=== PATIENT | male | born 1950 | race Caucasian/White ===

== ENCOUNTER 2018-07-08 11:24 | Observation (INO) ==
[2018-07-08 12:19] LABS: Basophils % 0.5 %; Eosinophils # 0.1 K/mcL (0.0-0.6); Eosinophils % 1.1 %; Hematocrit 44.1 % (37.5-50.1); Hemoglobin 14.9 g/dL (12.9-16.9); Immature Granulocytes % 0.3 % (0-4); Lymphocytes # 1.3 K/mcL (0.6-4.6); Lymphocytes % 20.1 %; Mean Corpuscular HGB Conc 33.8 g/dL (31.6-35.5); Mean Corpuscular Hemoglobin 31.4 pg (28.0-33.3); Mean Corpuscular Volume 92.8 fL (83.0-100.0); Mean Platelet Volume 10.6 fL (9.4-12.4); Monocytes # 0.5 K/mcL (0.0-1.3); Monocytes % 7.1 %; Neutrophils # 4.7 K/mcL (1.6-8.9); Platelet Count 187 K/mcL (140-400); Red Blood Count 4.75 M/mcL (4.19-5.50); Red Cell Distribution Width 12.8 % (11.5-14.5); Segmented Neutrophils % 70.9 %
[2018-07-08 12:38] LABS: BUN/Creatinine Ratio 20 (6-26); Blood Urea Nitrogen 22 mg/dL (8-23); Calcium 9.9 mg/dL (8.6-10.3); Carbon Dioxide 26 mEq/L (23-29); Chloride 106 mEq/L (98-107); Glucose 106 mg/dL (70-105); Osmolality,Calculated 290 (280-300); Potassium 4.8 mEq/L (3.5-5.1); Sodium 138 mEq/L (136-145); eGFR For Non-African Americans > 60 (> 60)
[2018-07-08 12:39] LABS: Troponin I < 0.03 ng/mL (< 0.04)
[2018-07-08] MEDS ORDERED: Aspirin 325 MG TABLET PO STA (12:45)
[2018-07-08] MEDS ORDERED: Acetaminophen 325 MG TABLET PO PRN (14:03)
[2018-07-08] MEDS ORDERED: Naloxone 0.4 MG/ML INJ IVP PRN (14:03)
--- NOTE | 2018-07-08 14:05 | Emergency Department Note ---
Disposition Clinical Impression: Chest pain Qualifiers: Chest pain type: unspecified Qualified Code(s): R07.9 - Chest pain, unspecified Disposition: Admitted As Inpatient Condition: Fair Referrals: Gómez Minor DO [Primary Care Provider] - General Adult HPI - General Chief complaint: ED Shortness of Breath/Dyspnea Stated complaint: "sob,weak" Time Seen by Provider: 07/08/18 11:28 Source: patient Limitations: no limitations Nursing Notes Reviewed: Yes Vital Signs Reviewed: Yes - History of Present Illness HPI Narrative: Patient with a history of smoking, hypertension, hypercholesterol it has not been on medications for over a year and a family history of heart disease for evaluation of chest pain and generalized weakness. Patient woke up today with generalized weakness. Patient was doing yard work when he noticed chest pain last proximally 30 minutes. Patient chest pain was during exertion. Chest pain resolved with rest. He had several episodes where he felt like he could not get a full breath in. His brother had similar symptoms when he had an CA 2 years ago. Patient's father has also had heart disease. The patient has not had any previous cardiac evaluation. Patient's EKG does not show any signs of acute STEMI. Further cardiac workup including d-dimer will be performed. Pain Scale: 0 - Related Data Home Medications Medication Instructions Recorded Confirmed Meloxicam 15 mg PO DAILY 08/12/16 02/10/17 Multivitamin [One Daily Essential] 1 tab PO DAILY 08/12/16 02/10/17 Omeprazole [PriLOSEC] 20 mg PO DAILY 08/12/16 02/10/17 Acetaminophen [Tylenol] 325 mg PO Q6HR PRN 02/10/17 02/10/17 Tamsulosin HCl [Flomax] 0.4 mg PO DAILY 02/10/17 02/10/17 Allergies Allergy/AdvReac Type Severity Reaction Status Date / Time No Known Allergies Allergy Verified 07/08/18 11:32 Review of Systems: CONSTITUTIONAL: Fatigue No weight loss, fever, chills, weakness HEENT: Eyes: No visual changes. Ears, Nose, Throat: No hearing loss, difficulty talking or unable to swallow. SKIN: No rash or itching. CARDIOVASCULAR: Chest pressure RESPIRATORY: Shortness of breath with exertion GASTROINTESTINAL: No anorexia, nausea, vomiting or diarrhea. No abdominal pain or blood. GENITOURINARY: No burning on urination or hematuria. NEUROLOGICAL: No headache, dizziness, syncope, paralysis, ataxia, numbness or tingling in the extremities. No change in bowel or bladder control. MUSCULOSKELETAL: No muscle pain, back pain, joint pain or stiffness. Past Medical History - Past Medical History Medical history: Reports: GERD, hyperlipidemia Surgical history: Reports: appendectomy, herniorrhaphy Psychiatric history: Reports: no psych history - Social History Smoking Status: Current every day smoker Smokeless Tobacco Status: No Alcohol use: Reports: rarely Drug use: Reports: marijuana Physical Exam General: Well appearing, nontoxic, no acute distress Head: Normocephalic Atraumatic Eyes: PERRL, EOMI ENT: Airway patent, no stridor Neck: supple, no meningismus Chest: Lungs clear to auscultation bilateral Cardiac: Regular rate and rhythm, no murmurs, rubs or gallops Abdomen: soft, nontender, nondistended; no guarding, rebound, or tenderness to percussion Musculoskeletal: Calves symmetric, nontender, no palpable cord Skin: No rash, normal skin tone Neuro: Alert and Oriented to person, place, and time; No focal deficit, CN 2-12 symmetric and intact - General Limitations: no limitations General appearance: alert, in no apparent distress Course - Reevaluation(s) Reevaluation #1: Patient remains chest pain-free. Workup is negative. Including d-dimer. Patient will be admitted for further cardiac evaluation - Consultations Consultation #1: Discussed the hospitalist. Patient except for admission. Vital Signs Temperature 98.2 F 07/08/18 11:31 Pulse Rate 100 07/08/18 11:31 Respiratory Rate 16 07/08/18 11:31 Blood Pressure 121/79 07/08/18 11:31 O2 Sat by Pulse Oximetry 98 07/08/18 11:31 Temperature 98.2 F 07/08/18 12:13 Pulse Rate 100 07/08/18 12:13 Respiratory Rate 16 07/08/18 12:13 Blood Pressure 121/79 07/08/18 12:13 O2 Sat by Pulse Oximetry 100 07/08/18 12:13 Oxygen Delivery Oxygen Delivery Room Air Medical Decision Making - Medical Records Medical records reviewed: Yes I reviewed the patient's medical records. - Lab Data Lab results reviewed: Yes I reviewed the patient's lab results. Result diagrams: 07/08/18 12:04 07/08/18 12:04 Lab Results 07/08/18 07/08/18 07/08/18 Range/Units 12:04 12:04 12:04 WBC 6.6 (4.3-11.1) K/mcL RBC 4.75 (4.19-5.50) M/mcL Hgb 14.9 (12.9-16.9) g/dL Hct 44.1 (37.5-50.1) % MCV 92.8 (83.0-100.0) fL MCH 31.4 (28.0-33.3) pg MCHC 33.8 (31.6-35.5) g/dL RDW 12.8 (11.5-14.5) % Plt Count 187 (140-400) K/mcL MPV 10.6 (9.4-12.4) fL Immature Gran % 0.3 (0-4) % Seg Neutrophils % 70.9 % Lymphocytes % 20.1 % Monocytes % 7.1 % Eosinophils % 1.1 % Basophils % 0.5 % Neutrophils # 4.7 (1.6-8.9) K/mcL Lymphocytes # 1.3 (0.6-4.6) K/mcL Monocytes # 0.5 (0.0-1.3) K/mcL Eosinophils # 0.1 (0.0-0.6) K/mcL Basophils # 0.0 (0.0-0.2) K/mcL D-Dimer 485 (0-500) ng/mLFEU Sodium 138 (136-145) mEq/L Potassium 4.8 (3.5-5.1) mEq/L Chloride 106 (98-107) mEq/L Carbon Dioxide 26 (23-29) mEq/L BUN 22 (8-23) mg/dL Creatinine 1.12 (0.70-1.30) mg/dL Est GFR ( Amer) > 60 (> 60) Est GFR (Non-Af Amer) > 60 (> 60) BUN/Creatinine Ratio 20 (6-26) Glucose 106 H (70-105) mg/dL Calculated Osmolality 290 (280-300) Calcium 9.9 (8.6-10.3) mg/dL Troponin I < 0.03 (< 0.04) ng/mL B-Natriuretic Peptide (Less than 100) pg/mL 07/08/18 Range/Units 12:04 WBC (4.3-11.1) K/mcL RBC (4.19-5.50) M/mcL Hgb (12.9-16.9) g/dL Hct (37.5-50.1) % MCV (83.0-100.0) fL MCH (28.0-33.3) pg MCHC (31.6-35.5) g/dL RDW (11.5-14.5) % Plt Count (140-400) K/mcL MPV (9.4-12.4) fL Immature Gran % (0-4) % Seg Neutrophils % % Lymphocytes % % Monocytes % % Eosinophils % % Basophils % % Neutrophils # (1.6-8.9) K/mcL Lymphocytes # (0.6-4.6) K/mcL Monocytes # (0.0-1.3) K/mcL Eosinophils # (0.0-0.6) K/mcL Basophils # (0.0-0.2) K/mcL D-Dimer (0-500) ng/mLFEU Sodium (136-145) mEq/L Potassium (3.5-5.1) mEq/L Chloride (98-107) mEq/L Carbon Dioxide (23-29) mEq/L BUN (8-23) mg/dL Creatinine (0.70-1.30) mg/dL Est GFR ( Amer) (> 60) Est GFR (Non-Af Amer) (> 60) BUN/Creatinine Ratio (6-26) Glucose (70-105) mg/dL Calculated Osmolality (280-300) Calcium (8.6-10.3) mg/dL Troponin I (< 0.04) ng/mL B-Natriuretic Peptide 10 (Less than 100) pg/mL - Radiology Data Radiology results reviewed: Yes I reviewed the patient's radiology results. - EKG Data EKG #1 EKG attestation: Yes I reviewed and interpreted this EKG. EKG results narrative: EKG shows sinus rhythm with ventricular rate of 82. DE interval 155. QRS 95. QTC 415. Patient has no significant ST elevations or depressions. Inverted T- wave in aVL. Because he went change in comparison to previous of 07/30/2015.
[2018-07-08] MEDS ORDERED: Ondansetron 4 MG/2 ML VIAL IVP PRN (14:07)
[2018-07-08] MEDS ORDERED: Nitroglycerin 0.4 MG TAB.SUBL SL PRN (14:07)
[2018-07-08] MEDS ORDERED: *HR* Promethazine 25 MG/ML VIAL IVP PRN (14:07)
--- NOTE | 2018-07-08 14:21 | Internal Med History&Physical ---
<MarylouparmjitfadumoRamin denis - Last Filed: 07/08/18 14:44> Date of Encounter: 07/08/18 Time of Encounter: 13:30 Internal Medicine - H&P: HPI Chief complaint: CP Admitted From: Emergency Dept Plans for Post Hospital Care: Home History of present illness: Mr. Brown is a 67 year old male w/PMH of HLD, BPH, GERD, and bleeding ulcer in 1991 presents from the ED w/CC of CP that began today. 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 While working today he experienced SOB, weakness, and chest tightness that he states was a pressure that took his breath away across his entire chest. Denies nausea, vomiting, diaphoresis, and headache. Denies radiation to any other area. Denies cardiac hx, previous [place], stents, or recent w/u. Reports no CP while in ED on exam. No alleviating factors. Pt. reports some dizziness w/standing but denies recent illness, fever , chills, nausea, vomiting, headache, changes in vision, unusual bleeding, cough , chest congestion, abdominal pain, diarrhea, constipation, numbness, tingling, pre-syncope, or syncope. Past Med Surg Social Fam HX - Past Medical History Source: patient, old records reviewed Medical history: GERD, hyperlipidemia Additional medical history: BPH Psychiatric history: no psych history - Past Surgical History Surgical History: appendectomy, herniorrhaphy Additional surgical history: billroth 2,stomach ulcer, - Social History Smoking Status: Current every day smoker Packs per day: 10/24 PPD Smokeless Tobacco Status: No Alcohol use: rarely Drug use: marijuana Current living situation: Home, With Family Activity Level: Independent ambulation, Very active Recent Out of Country Travel Within the Last 8 Weeks: No Exposure or Possible Exposure to Illness During Travel: No - Family History Father Race: Family Member Ethnicity: Non- Living Status: Cause of : in sleep Hx Family Cardiac Disorders: Yes ([place]) Mother Race: Family Member Ethnicity: Non- Living Status: Cause of : in sleep Hx Family Cardiac Disorders: Yes ([place], CAD) Brother Race: Family Member Ethnicity: Non- Living Status: Still Living Hx Family Cardiac Disorders: Yes ([place] x2 at age 67) Sister Race: Family Member Ethnicity: Non- Living Status: Still Living Hx Family Cardiac Disorders: Yes ([place]) Internal Medicine - H&P: Meds Meloxicam 15 mg PO DAILY 08/12/16 [History] Multivitamin [One Daily Essential] 1 tab PO DAILY 08/12/16 [History] Omeprazole [PriLOSEC] 20 mg PO DAILY 08/12/16 [History] Tamsulosin HCl [Flomax] 0.4 mg PO DAILY 02/10/17 [History] 3 Allergy/AdvReac Type Severity Reaction Status Date / Time No Known Allergies Allergy Verified 07/08/18 14:12 All Systems PM: A 10-system review of systems was performed and is negative for pertinent findings except as documented above in the HPI. - Constitutional Constitutional: as per HPI, weakness, no chills, no fever(s), no night sweats - EENT Eyes: no change in vision, no discharge, no pain, no photophobia Ears: no ear discharge, no ear pain, no tinnitus Nose, mouth and throat: no dysphagia, no nasal discharge, no neck pain, no sore throat - Breasts Breasts: as per HPI - Cardiovascular Cardiovascular ROS IM: as per HPI, dyspnea, dyspnea on exertion, lightheadedness , no chest pain, no diaphoresis, no palpitations, no syncope - Respiratory Respiratory: as per HPI, dyspnea, dyspnea on exertion, no cough, no wheezing, no excessive phlegm production - Gastrointestinal Gastrointestinal: no abdominal pain, no diarrhea, no hematemesis, no hematochezia, no melena, no nausea, no vomiting - Genitourinary Genitourinary ROS male: as per HPI, urinary hesitancy - Musculoskeletal Musculoskeletal ROS IM: no numbness, no tingling - Integumentary Integumentary IM: no rash, no unusual bruising - Neurological Neurological ROS: as per HPI, dizziness, weakness, no confusion, no convulsions , no focal weakness, no numbness, no tingling, no tremor(s) - Psychiatric Psychiatric: as per HPI - Endocrine Endocrine IM: as per HPI - Hematologic/Lymphatic Hematologic/Lymphatic: no easy bruising - Allergic/Immunologic Allergic/Immunologic: as per HPI - Constitutional Vitals: Temp Pulse Resp BP Pulse Ox 98.2 F 100 16 121/79 100 07/08/18 12:13 07/08/18 12:13 07/08/18 12:13 07/08/18 12:13 07/08/18 12:13 General appearance: Present: cooperative, A&O X 3, pleasant, no acute distress, answers questions appropriately Exam: Pt. examined at bedside in ED. Pt. resting comfortably in bed and denies CP during exam. 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 Reports dizziness w/positional changes and historically low BP. Denies SOB or weakness on exam. Plan of care discussed w/pt. regarding ACS r/o and he expressed understanding and agreement. VS: temp 98.2F, HR 100, RR 16, BP 121/79, SpO2 98 on RA. - Head Head exam: Present: atraumatic, normocephalic - Eye Eye exam: Present: PERRL, conjuntiva pink, sclera anicteric Pupils: Present: PERRL - ENT ENT exam: Present: normal exam - Neck Neck exam general surgery: Present: normal inspection, supple, trachea midline. Absent: lymphadenopathy - Respiratory Respiratory exam: Present: CTAB. Absent: accessory muscle use, rales, rhonchi, wheezes - Cardiovascular Cardiovascular exam: Present: RRR, +S1, +S2. Absent: diastolic murmur, gallop, rubs, systolic murmur - GI/Abdominal GI/Abdominal exam: Present: normal bowel sounds, soft, no peritoneal signs. Absent: distended, tenderness - Rectal Rectal exam: Present: deferred - Additional comments: exam deferred. - Extremities Exam Extremities exam: Present: warm, radial pulses palpable and symmetrical. Absent : calf tenderness, cyanotic, pedal edema - Back Exam Back exam: Present: normal inspection - Neurological Exam Neurological exam: Present: alert, CN II-XII intact, oriented X3, no focal deficits. Absent: pronater drift, facial droop, speech deficit - Psychiatric Psychiatric exam: Present: normal affect, normal mood - Skin Skin exam: Present: dry, intact Internal Med - H&P Results - Labs CBC & Chem 7: 07/08/18 12:04 07/08/18 12:04 Labs: Short CBC 07/08/18 Range/Units 12:04 WBC 6.6 (4.3-11.1) K/mcL Hgb 14.9 (12.9-16.9) g/dL Hct 44.1 (37.5-50.1) % Plt Count 187 (140-400) K/mcL Neutrophils # 4.7 (1.6-8.9) K/mcL BMP 07/08/18 12:04 Sodium 138 Potassium 4.8 Chloride 106 Carbon Dioxide 26 BUN 22 Creatinine 1.12 Glucose 106 H Calcium 9.9 Cardiac Enzymes 07/08/18 Range/Units 12:04 Troponin I < 0.03 (< 0.04) ng/mL - Impressions ITS Impressions Chest X-Ray 07/08/18 11:50 IMPRESSION: No acute process. D/ / Chencho Benitez MD / Chencho eBnitez MD Interpreting Provider: Chencho Benitez MD - Diagnostic Studies Chest x-ray Additional comments: Impressions Chest X-Ray 07/08/18 11:50 IMPRESSION: No acute process. D/ / Chencho Benitez MD / Chencho Benitez MD Interpreting Provider: Chencho Benitez MD - Assessment and plan (1) Chest pain Current Visit: Yes Status: Acute Assessment and plan: Acute CP today w/exertion. While working today he experienced SOB, weakness, and chest tightness that he states was a pressure that took his breath away across his entire chest. Denies nausea, vomiting, diaphoresis, and headache. Denies radiation to any other area. Denies cardiac hx, previous [place], stents, or recent w/u. Reports no CP while in ED on exam. No alleviating factors. Initial troponin <0.03. Will trend. ASA in ED. 80 mg Lipitor NOW. SL nitro PRN. Continuous cardiac telemetry. Echocardiogram. NPO Tuesday at 00:01 for a.m. exercise stress test on Tuesday morning if troponins remain WNL. Continue 81 mg Aspirin daily. Lipid panel ordered. Consider adding Cardiology consult if Echocardiogram, troponins, and/or stress test results abnormal. Pt. discussed w/ Dr. Cedeno who agrees w/plan of care. Pt. is high risk for further morbidity and cardiac event based on CP that began w/exertion, extensive familial hx of cardiac disease and MIs, hx of poorly controlled HLD, and current tobacco abuse. Observation. Qualifiers: Chest pain type: other chest pain Qualified Code(s): R07.89 - Other chest pain; R07.8 - Other chest pain (2) SOB (shortness of breath) Current Visit: Yes Status: Acute Assessment and plan: Acute SOB w/chest pressure. Pt. 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 Supplemental O2 w/titration and SpO2 monitoring PRN. (3) Dizziness Current Visit: Yes Status: Acute Assessment and plan: Acute dizziness w/positional changes. Orthostatic BPs and VS. Bilateral carotid Dopplers. Falls precautions. (4) Weakness Current Visit: Yes Status: Acute Assessment and plan: Acute weakness w/CP sx. Falls precautions. (5) HLD (hyperlipidemia) Current Visit: Yes Status: Chronic Assessment and plan: Hx of chronic HLD. Pt. states he was taking Lipitor daily @ 80 mg but his PCP stopped d/t causing nausea. Unsure if the Lipitor is what was causing the sx. Lipitor 80 mg NOW. Lipid panel in a.m. labs. Consider adding statin based on panel results. Qualifiers: Hyperlipidemia type: pure hypercholesterolemia Qualified Code(s): E78.00 - Pure hypercholesterolemia, unspecified; E78.0 - Pure hypercholesterolemia (6) GERD (gastroesophageal reflux disease) Current Visit: Yes Status: Chronic Assessment and plan: Hx of chronic GERD. Continue pts. Prilosec. IVP Zofran and Phenergan ordered for N/V PRN. Qualifiers: Esophagitis presence: esophagitis presence not specified Qualified Code(s) : K21.9 - Gastro-esophageal reflux disease without esophagitis (7) BPH (benign prostatic hyperplasia) Current Visit: Yes Status: Chronic Assessment and plan: Hx of BPH. Pt. reports difficulty w/urination and urinary retention. Continue pts. Flomax. Qualifiers: Lower urinary tract symptom presence: symptoms present Lower urinary tract symptom detail: urinary retention Qualified Code(s): N40.1 - Benign prostatic hyperplasia with lower urinary tract symptoms; R33.8 - Other retention of urine (8) DVT prophylaxis Current Visit: Yes Status: Acute Assessment and plan: Heparin 5,000 units SQ Q8HR for DVT prophylaxis. Monitor pt. for signs of bleeding d/t hx of bleeding ulcer. - Time Spent With Patient Total time spent is greater than 50% in coordination of care (as documented) at patient's floor/unit and/or counseling patient: Greater than 35 minutes <Gissel Cedeno - Last Filed: 07/08/18 20:28> Date of Encounter: 07/08/18 Internal Medicine - H&P: HPI History of present illness: Mr. Brown is a 67 year old male All Systems PM: A 10-system review of systems was performed and is negative for pertinent findings except as documented above in the HPI. - Constitutional Vitals: Temp Pulse Resp BP Pulse Ox 98.5 F 80 16 96/60 97 07/08/18 19:22 07/08/18 19:22 07/08/18 19:22 07/08/18 19:22 07/08/18 19:22 Internal Med - H&P Results - Labs CBC & Chem 7: 07/08/18 12:04 07/08/18 12:04 Labs: Cardiac Enzymes 07/08/18 Range/Units 18:06 Troponin I < 0.03 (< 0.04) ng/mL - Assessment and plan (1) Chest pain Current Visit: Yes Status: Acute Qualifiers: Chest pain type: other chest pain Qualified Code(s): R07.89 - Other chest pain; R07.8 - Other chest pain (2) SOB (shortness of breath) Current Visit: Yes Status: Acute (3) Dizziness Current Visit: Yes Status: Acute (4) Weakness Current Visit: Yes Status: Acute (5) HLD (hyperlipidemia) Current Visit: Yes Status: Chronic Qualifiers: Hyperlipidemia type: pure hypercholesterolemia Qualified Code(s): E78.00 - Pure hypercholesterolemia, unspecified; E78.0 - Pure hypercholesterolemia (6) GERD (gastroesophageal reflux disease) Current Visit: Yes Status: Chronic Qualifiers: Esophagitis presence: esophagitis presence not specified Qualified Code(s) : K21.9 - Gastro-esophageal reflux disease without esophagitis (7) BPH (benign prostatic hyperplasia) Current Visit: Yes Status: Chronic Qualifiers: Lower urinary tract symptom presence: symptoms present Lower urinary tract symptom detail: urinary retention Qualified Code(s): N40.1 - Benign prostatic hyperplasia with lower urinary tract symptoms; R33.8 - Other retention of urine (8) DVT prophylaxis Current Visit: Yes Status: Acute - Time Spent With Patient Total time spent is greater than 50% in coordination of care (as documented) at patient's floor/unit and/or counseling patient: - Attending Attestation Seen and assessed. Continue management for chest pain. Agree with plan per LOCKSTITCH BINDER
[2018-07-08] MEDS: *HR* Heparin 5,000 UNIT/ML VIAL SQ SCH (20:14)
[2018-07-09 00:45] LABS: Basophils % 0.7 %; Eosinophils # 0.2 K/mcL (0.0-0.6); Hematocrit 39.3 % (37.5-50.1); Hemoglobin 13.4 g/dL (12.9-16.9); Immature Granulocytes % 0.2 % (0-4); Lymphocytes # 2.5 K/mcL (0.6-4.6); Lymphocytes % 40.8 %; Mean Corpuscular HGB Conc 34.1 g/dL (31.6-35.5); Mean Corpuscular Hemoglobin 31.6 pg (28.0-33.3); Mean Corpuscular Volume 92.7 fL (83.0-100.0); Mean Platelet Volume 10.7 fL (9.4-12.4); Monocytes # 0.6 K/mcL (0.0-1.3); Monocytes % 9.8 %; Neutrophils # 2.7 K/mcL (1.6-8.9); Platelet Count 165 K/mcL (140-400); Red Blood Count 4.24 M/mcL (4.19-5.50); Red Cell Distribution Width 12.8 % (11.5-14.5); Segmented Neutrophils % 45.5 %
[2018-07-09 01:06] LABS: Alanine Aminotransferase 11 Units/L (7-52); Albumin 3.7 g/dL (3.5-5.7); Albumin/Globulin Ratio 1.8 (1.1-2.2); Alkaline Phosphatase 61 Units/L (34-104); Aspartate Amino Transferase 14 Units/L (13-39); BUN/Creatinine Ratio 22 (6-26); Bilirubin,Total 0.4 mg/dL (0.3-1.0); Blood Urea Nitrogen 22 mg/dL (8-23); Calcium 8.9 mg/dL (8.6-10.3); Carbon Dioxide 24 mEq/L (23-29); Chloride 107 mEq/L (98-107); Chol/HDL Ratio 4.3 (0-4.9); Cholesterol 170 mg/dL (< 200); Globulin 2.1 g/dL (2.4-3.5); Glucose 125 mg/dL (70-105); HDL Cholesterol 40 mg/dL (40-59); LDL Cholesterol,Calculated 109 mg/dL (0-99); Osmolality,Calculated 289 (280-300); Potassium 4.1 mEq/L (3.5-5.1); Sodium 137 mEq/L (136-145); Total Protein 5.8 g/dL (6.4-8.9); Triglycerides 103 mg/dL (< 150); eGFR For Non-African Americans > 60 (> 60)
[2018-07-09] MEDS: *HR* Heparin 5,000 UNIT/ML VIAL SQ SCH ×3 (05:12→21:52)
[2018-07-09] MEDS: Multivit/Ca/Min/Fe/FA 1 TAB TABLET PO SCH (08:23)
[2018-07-09] MEDS: Aspirin Enteric Coated 81 MG Tablet PO SCH (08:23)
[2018-07-09] MEDS ORDERED: Perflutren Lipid Microsphere 1.3 ML in 0.9 % Sodium Chloride 8.7 ML IVP ONE (10:56)
[2018-07-09] MEDS: Nicotine 14 MG PATCH.TD24 TD SCH (12:16)
--- NOTE | 2018-07-09 12:42 | Internal Med Progress Note ---
Hospitalist Progress Note - Encounter Date of Encounter: 07/09/18 Time of Encounter: 12:10 - Subjective Interval History: H&P reviewed. Patient was admitted for atypical chest pain with tobacco history of hyperlipidemia, tobacco abuse, and family history of premature CAD. Currently denies any chest pain nor did it recur overnight. No SOB, palpitation , orthopnea, PND, or leg swelling. - Exam Vitals: Temp Pulse Resp BP Pulse Ox 98.8 F 72 16 99/62 100 07/09/18 12:01 07/09/18 12:01 07/09/18 12:01 07/09/18 12:07/09/18 12:01 Exam: General: Alert and oriented, not in acute distress. Cardiovascular:Normal S1 & S2, No JVD. Pulse regular. No chest wall tenderness Lungs: clear to auscultation, no wheezes/rales Abdomen:Soft, non-tender, no rigidity. Extremities:No deformity or swelling Neurological:Normal cognition and motor skills. Non-focal - Assessment and Plan (1) Chest pain Current Visit: Yes Status: Acute Assessment and Plan: Atypical chest pain with risk factors including hyperlipidemia, tobacco abuse, and family history troponin -ve x 3 LDL 109, HDL 40 check A1c Echocardiogram for stress test tomorrow ASA, statin (2) HLD (hyperlipidemia) Current Visit: Yes Status: Chronic Assessment and Plan: Lipid profile as above Statin (3) GERD (gastroesophageal reflux disease) Current Visit: Yes Status: Chronic Assessment and Plan: Hx of chronic GERD. Continue pts. Prilosec. IVP Zofran and Phenergan ordered for N/V PRN. (4) BPH (benign prostatic hyperplasia) Current Visit: Yes Status: Chronic Assessment and Plan: Hx of BPH. Pt. reports difficulty w/urination and urinary retention. Continue pts. Flomax. (5) Tobacco abuse Current Visit: Yes Status: Acute Assessment and Plan: Counselled on smoking cessation NRT (6) DVT prophylaxis Current Visit: Yes Status: Acute Assessment and Plan: Heparin 5,000 units SQ Q8HR for DVT prophylaxis. - Time Spent with Patient Total time spent is greater than 50% in coordination of care (as documented) at patient's floor/unit and/or counseling patient: Plan of Care Discussed with: patient Internal Medicine: Result - Labs CBC & Chem 7: 07/09/18 00:31 07/09/18 00:31 Labs: Short CBC 07/09/18 Range/Units 00:31 WBC 6.0 (4.3-11.1) K/mcL Hgb 13.4 D (12.9-16.9) g/dL Hct 39.3 (37.5-50.1) % Plt Count 165 (140-400) K/mcL Neutrophils # 2.7 (1.6-8.9) K/mcL BMP 07/09/18 00:31 Sodium 137 Potassium 4.1 Chloride 107 Carbon Dioxide 24 BUN 22 Creatinine 1.02 Glucose 125 H Calcium 8.9 Cardiac Enzymes 07/08/18 07/09/18 Range/Units 18:06 00:31 Troponin I < 0.03 < 0.03 (< 0.04) ng/mL Liver Function 07/09/18 Range/Units 00:31 Total Bilirubin 0.4 (0.3-1.0) mg/dL AST 14 (13-39) Units/L ALT 11 (7-52) Units/L Alkaline Phosphatase 61 (34-104) Units/L Albumin 3.7 (3.5-5.7) g/dL - ABG Interpretation ABG results: PT/INR, D-dimer D-Dimer 485 ng/mLFEU (0-500) 07/08/18 12:04 Consult Discharge Plan - Plan Referrals: Gómez Minor DO [Primary Care Provider] - (1) Chest pain Qualifiers: Chest pain type: other chest pain Qualified Code(s): R07.89 - Other chest pain; R07.8 - Other chest pain (2) HLD (hyperlipidemia) Qualifiers: Hyperlipidemia type: pure hypercholesterolemia Qualified Code(s): E78.00 - Pure hypercholesterolemia, unspecified; E78.0 - Pure hypercholesterolemia (3) GERD (gastroesophageal reflux disease) Qualifiers: Esophagitis presence: esophagitis presence not specified Qualified Code(s): K21.9 - Gastro-esophageal reflux disease without esophagitis (4) BPH (benign prostatic hyperplasia) Qualifiers: Lower urinary tract symptom presence: symptoms present Lower urinary tract symptom detail: urinary retention Qualified Code(s): N40.1 - Benign prostatic hyperplasia with lower urinary tract symptoms; R33.8 - Other retention of urine
[2018-07-10] MEDS: *HR* Heparin 5,000 UNIT/ML VIAL SQ SCH ×2 (05:11→14:27)
[2018-07-10 07:04] LABS: Estimated Average Glucose 117 mg/dl; Hemoglobin A1C 5.7 %
[2018-07-10] MEDS: Nicotine 14 MG PATCH.TD24 TD SCH (09:23)
[2018-07-10] MEDS: Multivit/Ca/Min/Fe/FA 1 TAB TABLET PO SCH (09:24)
[2018-07-10] MEDS: Aspirin Enteric Coated 81 MG Tablet PO SCH (09:24)
[2018-07-10 15:24] VITALS: BP 107/71
--- NOTE | 2018-07-10 16:58 | Discharge Summary ---
- NOTES TO OUTPATIENT PROVIDER Notes to Outpatient Provider: Patient is admitted for atypical chest pain in the setting of concurrent hyperlipidemia, tobacco abuse, and family history. ACS ruled out and echocardiogram was unremarkable. No evidence of diabetes. Stress test was subsequent performed which was negative for ischemia. He will be discharged on sublingual nitroglycerin to see if it has any correlation to chest discomfort -> if recurs, he may need LHC. He will also be given ASA and statin. Orders not resulted at time of discharge: Pending orders 07/08/18 14:26 EKG [ECG 12 lead ECG] [ECG] Stat Date of Encounter: 07/10/18 Time of Encounter: 13:00 - Discharge Diagnosis (1) Chest pain Priority: Primary Status: Acute Qualifiers: Chest pain type: other chest pain Qualified Code(s): R07.89 - Other chest pain; R07.8 - Other chest pain (2) HLD (hyperlipidemia) Priority: Secondary Status: Chronic Qualifiers: Hyperlipidemia type: pure hypercholesterolemia Qualified Code(s): E78.00 - Pure hypercholesterolemia, unspecified; E78.0 - Pure hypercholesterolemia (3) GERD (gastroesophageal reflux disease) Priority: Secondary Status: Chronic Qualifiers: Esophagitis presence: esophagitis presence not specified Qualified Code(s) : K21.9 - Gastro-esophageal reflux disease without esophagitis (4) BPH (benign prostatic hyperplasia) Priority: Secondary Status: Chronic Qualifiers: Lower urinary tract symptom presence: symptoms present Lower urinary tract symptom detail: urinary retention Qualified Code(s): N40.1 - Benign prostatic hyperplasia with lower urinary tract symptoms; R33.8 - Other retention of urine (5) Tobacco abuse Priority: Secondary Status: Acute (6) DVT prophylaxis Priority: Secondary Status: Acute Hospital course: Mr. Brown is a 67 year old male with history of hyperlipidemia, tobacco abuse , family history of premature CAD was admitted for atypical chest pain. ACS ruled out and echocardiogram was unremarkable. No evidence of diabetes. Did not have any recurrence of similar symptoms during his stay. Stress test was subsequent performed which was negative for ischemia. He will be discharged on sublingual nitroglycerin to see if it has any correlation to chest discomfort - > if recurs, he may need LHC. He will also be given ASA and statin. Discharge discussed with: patient, nurse - Time Spent with Patient Total time spent providing and/or coordinating discharge services: Greater than 30 minutes - Discharge Medications Prescriptions: Nitroglycerin 0.4 mg SL Q5MIN PRN #15 tab.subl PRN Reason: Chest Pain Aspirin Enteric Coated [Aspirin EC] 81 mg PO DAILY #30 tablet. Atorvastatin [Lipitor] 40 mg PO HS #30 tablet Home Medications: Meloxicam 15 mg PO DAILY 08/12/16 [History] Multivitamin [One Daily Essential] 1 tab PO DAILY 08/12/16 [History] Omeprazole [PriLOSEC] 20 mg PO DAILY 08/12/16 [History] Tamsulosin HCl [Flomax] 0.4 mg PO DAILY 02/10/17 [History] Aspirin Enteric Coated [Aspirin EC] 81 mg PO DAILY #30 tablet. 07/10/18 [Rx] Atorvastatin [Lipitor] 40 mg PO HS #30 tablet 07/10/18 [Rx] Nitroglycerin 0.4 mg SL Q5MIN PRN #15 tab.subl 07/10/18 [Rx] Allergies/Adverse Reactions: 3 Allergy/AdvReac Type Severity Reaction Status Date / Time No Known Allergies Allergy Verified 07/08/18 14:12 Date of admission: 07/08/18 14:20 Primary care physician: Gómez Minor DO - Constitutional Vitals: Temp Pulse Resp BP Pulse Ox 98.1 F 69 18 107/71 97 07/10/18 15:23 07/10/18 15:23 07/10/18 15:23 07/10/18 15:23 07/10/18 15:23 General appearance: Present: cooperative, A&O X 3, pleasant, no acute distress, answers questions appropriately Exam: General: Alert and oriented, not in acute distress. Cardiovascular:Normal S1 & S2, No JVD. Pulse regular. No chest wall tenderness Lungs: clear to auscultation, no wheezes/rales Abdomen:Soft, non-tender, no rigidity. Extremities:No deformity or swelling Neurological:Normal cognition and motor skills. Non-focal - Patient Status Disposition: Home, Self-Care Condition: Fair Functional capacity at discharge: independent ambulation Overall status at discharge: patient is back to baseline - Discharge Instructions Instructions: Chest Pain (DC) Follow Up With: Gómez Minor DO [Primary Care Provider] - - Diet and Activity Activity: resume usual activities as tolerated Diet: low salt diet
--- NOTE | 2018-07-11 17:58 | Electrocardiograph Report ---
[place] [id number] Test Date: 2018-07-08 Pat Name: Keaton Brown Department: [id number] Room: 3B24 Gender: M [employer]: : [id number] Requested By: [id number] Order Number: [id number] Reading MD: Gretta Tomlin Measurements Intervals [place] Rate: 82 P: 63 GA: 155 QRS: 81 QRSD: 95 T: 65 QT: 355 QTc: 415 Interpretive Statements Sinus rhythm Borderline right axis deviation Electronically Signed On 07-11-2018 17:56:20 EDT by Gretta Tomlin
== END 2018-07-10 17:32 | disposition home or self-care (01) ==
LOC: 3BNU 11:24 → EMEROOARM 11:24 → SUATTDRO 14:20 → 3BNU 15:36
PROVIDERS: ADMIT Student in an Organized Health Care Education/Training Program; ATTEND Internal Medicine